=== PATIENT | male | born 1955 | race Caucasian/White ===

== ENCOUNTER → 2017-07-17 | Outpatient (CLI) | payer OTHER | END | disposition home or self-care (01) | LOC: LAB EV 11:12 | DX: L57.0 Actinic keratosis (principal) | CPT/HCPCS: 87070; 87205 ==

== ENCOUNTER → 2019-03-21 | Outpatient (CLI) | payer OTHER | END | disposition home or self-care (01) | LOC: PLD 08:21 → LAB SHORT 08:21 | DX: S90.851A Superficial foreign body, right foot, initial encounter (principal); L90.5 Scar conditions and fibrosis of skin | CPT/HCPCS: 88305 ==

== ENCOUNTER → 2020-03-10 | Outpatient (CLI) | payer OTHER ==
[2020-03-10 11:38] LABS: CHOL/HDL RATIO 2.4; Cholesterol 127 mg/dL (50-200); HDL Cholesterol 52 mg/dL (>39); LDL/HDL RATIO 1.2; Low Density Lipoprotein Chol 61 mg/dL (<110); Triglycerides 68 mg/dL (30-160); Very Low Density Lipoprot Chol 13 mg/dL (6-32)
[2020-03-10 14:02] LABS: PSA, %Free 27.7 %; PSA, Free 0.771 ng/mL
== END | disposition home or self-care (01) ==
LOC: LAB SHORT 11:15 → LAB EV 11:15
PROVIDERS: Physician Assistant
DX: Z12.5 Encounter for screening for malignant neoplasm of prostate (principal); I25.10 Atherosclerotic heart disease of native coronary artery without angina pectoris; E11.9 Type 2 diabetes mellitus without complications
CPT/HCPCS: 36415; 80061; 83036; 84153; 84154

== ENCOUNTER 2022-11-26 14:50 | Inpatient (IN) | payer OTHER ==
[~2022-11-26] VITALS: Ht 170.2 cm; Wt 79.3 kg
[2022-11-26 15:58] LABS: BASOPHILS ABSOLUTE AUTO 0.05 K/mm3 (0.00-0.23); BASOPHILS PERCENT AUTO 1 % (0-2); EOSINOPHILS ABSOLUTE AUTO 0.74 K/mm3 (0.00-0.68); EOSINOPHILS PERCENT AUTO 10 % (0-6); Hematocrit 39.6 % (37.0-53.0); Hemoglobin 13.5 g/dL (13.5-17.5); IMMATURE GRAN ABSOLUTE AUTO 0.02 K/mm3 (0.00-0.10); IMMATURE GRAN PERCENT AUTO 0 % (0-1); LYMPHOCYTES ABSOLUTE AUTO 1.82 K/mm3 (0.84-5.20); LYMPHOCYTES PERCENT AUTO 25 % (21-46); MONOCYTES ABSOLUTE AUTO 0.84 K/mm3 (0.16-1.47); MONOCYTES PERCENT AUTO 11 % (4-13); Mean Corpuscular HGB 31.6 pg (26.0-34.0); Mean Corpuscular HGB Conc 34.1 g/dL (31.5-36.5); Mean Corpuscular Volume 93 fL (80-100); Mean Platelet Volume 10.1 fL (9.1-12.4); NEUTROPHILS ABSOLUTE AUTO 3.94 K/mm3 (1.96-9.15); NEUTROPHILS PERCENT AUTO 53 % (41-73); Platelet Count 224 K/mm3 (150-400); RDW Coefficient Variation 12.2 % (11.7-14.2); RDW Standard Deviation 41.4 fL (35.1-46.3); Red Blood Cell Count 4.27 M/mm3 (4.30-5.90); White Blood Cell Count 7.41 K/mm3 (4.00-11.30)
[2022-11-26] MEDS ORDERED: ALBU2.5V5 INH (16:00)
[2022-11-26] MEDS ORDERED: ALOGLIPTIN25 M1 PO (16:00)
[2022-11-26] MEDS ORDERED: FLOVENT HFA12 GM INH (16:01)
[2022-11-26] MEDS ORDERED: ASPI81CH PO (16:01)
[2022-11-26] MEDS ORDERED: ATOR80 PO (16:01)
[2022-11-26] MEDS ORDERED: METF500C PO (16:01)
[2022-11-26] MEDS ORDERED: TOPROL XL50 M1 PO (16:02)
[2022-11-26] MEDS ORDERED: MONT10T PO (16:02)
[2022-11-26] MEDS ORDERED: NITR.4SL SL (16:02)
[2022-11-26 16:12] LABS: Albumin/Globulin Ratio 1.2 (0.8-1.8); Bilirubin, Total 0.7 mg/dL (0.1-1.0); Bun/Creatinine Ratio 15.8 (12.0-20.0); Calcium, Blood 8.8 mg/dL (8.5-10.1); Creatinine, Blood 0.76 mg/dL (0.60-1.20); Globulin, Blood 3.2 g/dL (2.2-4.0); Potassium, Blood 4.2 mmol/L (3.5-5.5); Total Protein, Blood 7.2 g/dL (6.4-8.2)
--- NOTE | 2022-11-26 21:24 | NUR ---
PT CHART REVIEWED FOR ADMIT
[2022-11-26 22:07] VITALS: BP 151/79
[2022-11-27 00:19] LABS: Anti-Xa UFH, PHA Monitoring <0.10 IU/mL; International Normalized Ratio 1.04; Prothrombin Time Results 10.9 Sec (9.7-11.5)
[2022-11-27 01:54] LABS: Hemoglobin 13.6 g/dL (13.5-17.5); Mean Corpuscular HGB 31.8 pg (26.0-34.0); Mean Corpuscular HGB Conc 34.9 g/dL (31.5-36.5); Mean Corpuscular Volume 91 fL (80-100); Mean Platelet Volume 10.2 fL (9.1-12.4); Platelet Count 222 K/mm3 (150-400); RDW Coefficient Variation 12.1 % (11.7-14.2); RDW Standard Deviation 40.3 fL (35.1-46.3); Red Blood Cell Count 4.28 M/mm3 (4.30-5.90)
[2022-11-27 02:11] LABS: Bun/Creatinine Ratio 14.1 (12.0-20.0); Creatinine, Blood 0.71 mg/dL (0.60-1.20); Potassium, Blood 3.9 mmol/L (3.5-5.5)
[2022-11-27 03:38] VITALS: BP 114/58
--- NOTE | 2022-11-27 04:55 | NUR ---
SHIFT SUMMARY 67 YR M ADMITTED ON 11/26/22 FOR UNSTABLE ANGINA. FULL CODE. NO ACUTE CHANGES THIS SHIFT. PT WAS STARTED ON A HEPARIN DRIP AND IS TOLERATING IT WELL. A SECOND IV WAS PLACED IN THE RIGHT FOREARM AND NS IS RUNNING AT 74 ML/HR. HE HAS HAD NO C/O CHEST PAIN THIS SHIFT BUT WAS CONCERNED ABOUT NITRO BEING AVAILABLE JUST IN CASE. HE IS CURRENTLY SLEEPING AND APPEARS TO BE COMFORTABLE. PT WAS EDUCATED ABOUT IGNITION DANGER AND FIRE SAFETY WHILE OXYGEN IS IN USE.
[2022-11-27 07:29] VITALS: BP 107/50
--- NOTE | 2022-11-27 09:37 | NUR ---
CALLED DR. CLINTON AT AROUND 0925, TO CLARIFY PATIENT SCHEDULED AM MEDS. PATIENT HAS BEEN NPO SINCE AL FOR PERDING CARDILOGY CONSULT AND BP 107/50 c HR OF [address] CLINTON TO GIVE SCHEDULED AM MEDS.
--- NOTE | 2022-11-27 16:36 | NUR ---
SHIFT SUMMARY: PATIENT A&OX4. CALM, PLEASANT AND COOPERATIVE c CARE. USES CALL LIGHT APPROPRIATELY AND ABLE TO NEEDS KNOWN. PATIENT DENIES CP/PRESSURE, SOB, N/V AND GENERALIZED PAIN. ON TELE, SB/SR IN HIGH 50'S TO LOW 60'S BPM. RA c SPO2 ABOVE 95% T/O SHIFT. PATIENT IS CONTINENT OF BOWELS AND BLADDER, AMBULATES TO BATHROOM INDEPENDENTLY T/O SHIFT. NPO AT ND FOR POSSIBLE CARDIAC CATHETERIZATION IN AM 11/28/22. RECEIVED SCHEDULED MEDS PER EMAR. PIV TO RAC INFUSING NS AT 75 MLS/HR, PIV TO L FOREARM INFUSING HEPARIN AT 14 U/KG/HR-22.1 MLS/HR RATE CONTROLLED BY PHARMACY. VITAL SIGNS REVIEWED. CALL LIGHT IN REACH. PATIENT EDUCATED ON NON SMOKING POLICY, RISK OF INJURY AND IGNITION SOURCES WHEN O2 IN USE. PATIENT DENIES SMOKING AND VERBALIZED UNDERSTANDING.
[2022-11-27 16:45] VITALS: BP 122/54
[2022-11-27 19:15] VITALS: BP 157/77
[2022-11-27 20:30] VITALS: BP 113/62
[2022-11-28] VITALS (11 sets, daily range): BP systolic 102–158; BP diastolic 40–97
--- NOTE | 2022-11-28 05:41 | NUR ---
SHIFT SUMMARY NO ACUTE CHANGES. HAS RESTED QUIETLY WITH EYES CLOSED, RESP EVEN & UNLABORED. NO COMPLAINTS OF CP. TELE SHOWS SR. HAS BEEN NPO SINCE NV FOR ANTICIPATED HEART CATH IN THE MORNING. NS & HEPARIN INFUSING PER MD ORDER. IS PLEASANT & COOPERATIVE WITH ALL CARE. BED IN LOW POSITION, CALL LIGHT WITHIN REACH.
[2022-11-28 06:12] LABS: BASOPHILS ABSOLUTE AUTO 0.04 K/mm3 (0.00-0.23); BASOPHILS PERCENT AUTO 1 % (0-2); EOSINOPHILS ABSOLUTE AUTO 0.53 K/mm3 (0.00-0.68); EOSINOPHILS PERCENT AUTO 9 % (0-6); Hematocrit 37.2 % (37.0-53.0); Hemoglobin 12.8 g/dL (13.5-17.5); IMMATURE GRAN ABSOLUTE AUTO 0.01 K/mm3 (0.00-0.10); IMMATURE GRAN PERCENT AUTO 0 % (0-1); LYMPHOCYTES ABSOLUTE AUTO 1.56 K/mm3 (0.84-5.20); LYMPHOCYTES PERCENT AUTO 26 % (21-46); MONOCYTES ABSOLUTE AUTO 0.59 K/mm3 (0.16-1.47); MONOCYTES PERCENT AUTO 10 % (4-13); Mean Corpuscular HGB 31.7 pg (26.0-34.0); Mean Corpuscular HGB Conc 34.4 g/dL (31.5-36.5); Mean Corpuscular Volume 92 fL (80-100); Mean Platelet Volume 10.2 fL (9.1-12.4); NEUTROPHILS PERCENT AUTO 55 % (41-73); Platelet Count 178 K/mm3 (150-400); RDW Coefficient Variation 12.1 % (11.7-14.2); RDW Standard Deviation 41.1 fL (35.1-46.3); Red Blood Cell Count 4.04 M/mm3 (4.30-5.90); White Blood Cell Count 6.03 K/mm3 (4.00-11.30)
[2022-11-28 06:38] LABS: Bun/Creatinine Ratio 13.3 (12.0-20.0); Calcium, Blood 8.5 mg/dL (8.5-10.1); Creatinine, Blood 0.75 mg/dL (0.60-1.20); Potassium, Blood 4.1 mmol/L (3.5-5.5)
--- NOTE | 2022-11-28 08:48 | NUR ---
PATIENT A&OX4. DENIES CP/PRESSURE, SOB, DIZZINESS AND GENERALIZED PAIN. ON TELE, SR HR IN THE HIGH 70'S BPM. NPO SINCE MN. RECEIVED SCHEDULED MEDS PER EMAR. VITAL SIGNS REVIEWED. HEPARIN WAS STOP AT 0842 AND PASSENGER TIRE BUILDER WAS NOTIFIED. PATIENT LEFT THE ROOM AT 0848 TO LEATHER FINISHER.
--- NOTE | 2022-11-28 09:57 | NUR ---
NOTE: PATIENT TRANSFERRED TO PCU RM 13. REPORTS GIVEN TO PETRA HAWLEY AT AROUND 0904. ALL PATIENT PERSONAL BELONGINGS WERE SENT WITH THE PATIENT.
--- NOTE | 2022-11-28 10:12 | NUR ---
pt update PT ARRIVED TO PCU FROM PRESS MANAGER APPROX 0945. PT AMBULATED FROM WHEELCHAIR TO PCU BED INDEPENDENTLY. VSS. PT A&OX4. SINUS GAB, HR 50'S. POST ANGIO, R RADIAL SITE. TR BAND W/ 11 MLS. SITE SOFT, NO BRUISING NO BLEEDING NOTED. ARM BOARD IN PLACE. PT EDUCATED ON R RADIAL POST PROCEDURE INSTRUCTIONS. PT EDUCATED ON IGNITION SOURCES AND FIRE PREVENTION. PT ORIENTED TO ROOM, CALL LIGHT. REPORT RECEIVED FROM MEDICAL RN. BELONGINGS RETREIVED FROM MEDICAL FLOOR. PT'S SISTER CALLED FOR UPDATE, TRANSFERRED INTO ROOM TO SPEAK W/ PT. CALL LIGHT IN REACH.
--- NOTE | 2022-11-28 12:08 | NUR ---
tr band update 2 hrs post tr band placement. 2 mls removed from band. no bleeding noted. arm board in place.
--- NOTE | 2022-11-28 18:10 | NUR ---
SHIFT SUMMARY PT A&OX4, SEE PREVIOUS NOTE. TR BAND DEFLATED, REMOVED APPROX 1600. CALL PLACED TO MD SHANNON TO CONFIRM HEPARIN RESTART. HEPARIN RESTARTED AT 1700, SEE EMAR. PT UP TO SHOWER THIS AFTERNOON. NS INFUSED X1 BAG PER EMAR. PT SITTING ON SIDE OF BED, EATING DINNER. CALL LIGHT IN REACH.
--- NOTE | 2022-11-28 22:17 | NUR ---
ASSUMED PT CARE FROM VIKY LAMBERT ON . A&OX4. DENIES ANY CHEST PAIN/PRESSURE. HR SR 70'S. BP STABLE, SEE RECORDED VITALS. DENIES SOB. RESPIRATIONS EVEN AND UNLABORED. O2 SATS 96% ON RA. RIGHT RADIAL SIGNS C/D/I, NO BRUISING OR INTERATION NOTED. TEGADERM COVERING AND ARM BOARD IN PLACE. PT IS KNOWLEDGEABLE ABOUT USE OF ARM AT THIS TIME. DENIES NEEDS. CALL LIGHT IN REACH. BED IN LOW POSITION.
--- NOTE | 2022-11-29 00:12 | NUR ---
UNABLE TO OPEN VITAL SIGNS RECORD IN [employer] DUE TO MEDITECH CRASHING AND HAVING TO BE RESTARTED. VITAL SIGNS RECORD LOCKED BY THIS RN, UNABLE TO UNLOCK. VITAL SIGNS RECORDED HERE. TEMPORAL TEMPERATURE IS 97.3, RESPIRATIONS 16, EVEN AND UNLABORED, HR 63 SR, BP 149/72 WITH MAP OF 94. O2 SATS 95% ON RA. DENIES NEEDS AT THIS TIME. CALL LIGHT IN REACH. BED IN LOW POSITION.
[2022-11-29 04:17] VITALS: BP 137/76
--- NOTE | 2022-11-29 04:22 | NUR ---
SHIFT SUMMARY: NO ACUTE CHANGES NOTED DURING THIS SHIFT. PT HAS DENIED HAVING ANY EPISODES OF CHEST PAIN. VITAL SIGNS REMAIN STABLE. VOIDING CLEAR, YELLOW URINE IN HIS URINAL WITHOUT DIFFICULTY. HEPRIN GTT INFUSING ORDERED, SEE EMAR. CALL LIGHT IN REACH. BED IN LOW POSITION.
[2022-11-29 06:21] LABS: BASOPHILS ABSOLUTE AUTO 0.04 K/mm3 (0.00-0.23); BASOPHILS PERCENT AUTO 1 % (0-2); EOSINOPHILS ABSOLUTE AUTO 0.68 K/mm3 (0.00-0.68); EOSINOPHILS PERCENT AUTO 10 % (0-6); Hematocrit 36.8 % (37.0-53.0); Hemoglobin 12.8 g/dL (13.5-17.5); IMMATURE GRAN ABSOLUTE AUTO 0.01 K/mm3 (0.00-0.10); IMMATURE GRAN PERCENT AUTO 0 % (0-1); LYMPHOCYTES ABSOLUTE AUTO 1.81 K/mm3 (0.84-5.20); LYMPHOCYTES PERCENT AUTO 27 % (21-46); MONOCYTES ABSOLUTE AUTO 0.62 K/mm3 (0.16-1.47); MONOCYTES PERCENT AUTO 9 % (4-13); Mean Corpuscular HGB 31.8 pg (26.0-34.0); Mean Corpuscular HGB Conc 34.8 g/dL (31.5-36.5); Mean Corpuscular Volume 92 fL (80-100); Mean Platelet Volume 9.9 fL (9.1-12.4); NEUTROPHILS ABSOLUTE AUTO 3.49 K/mm3 (1.96-9.15); NEUTROPHILS PERCENT AUTO 53 % (41-73); Platelet Count 184 K/mm3 (150-400); RDW Coefficient Variation 12.1 % (11.7-14.2); RDW Standard Deviation 40.7 fL (35.1-46.3); Red Blood Cell Count 4.02 M/mm3 (4.30-5.90); White Blood Cell Count 6.65 K/mm3 (4.00-11.30)
[2022-11-29 06:35] LABS: Bun/Creatinine Ratio 9.5 (12.0-20.0); Calcium, Blood 8.7 mg/dL (8.5-10.1); Creatinine, Blood 0.84 mg/dL (0.60-1.20); Potassium, Blood 3.8 mmol/L (3.5-5.5)
[2022-11-29 08:16] VITALS: BP 140/72
[2022-11-29 11:38] VITALS: BP 150/100
[2022-11-29 15:55] VITALS: BP 165/96
[2022-11-29 20:04] VITALS: BP 144/79
--- NOTE | 2022-11-29 22:37 | NUR ---
ASSUMED PT CARE FROM VIKY LAMBERT ON . A&OX4. DENIES ANY CHEST PAIN/PRESSURE, HR SR IN THE 80'S. DENIES FEELING SOB, RESPIRATIONS EVEN AND UNLABOED. O2 SATS > 92% ON RA. BP STABLE, SEE RECORDED VITALS. AFEBRILE. HEPRIN GTT INFUSING PER ORDERS, SEE EMAR. SHOWERED FOR PT COMFORT. DENIES NEEDS. RIGHT RADIAL SITE C/D/I, NO BLEEDING, INDERATION OR SWELLING NOTED. CALL LIGHT IN REACH. BED IN LOW POSITION.
[2022-11-30 00:44] VITALS: BP 145/82
[2022-11-30 03:35] VITALS: BP 151/93
[2022-11-30 03:52] LABS: BASOPHILS ABSOLUTE AUTO 0.05 K/mm3 (0.00-0.23); BASOPHILS PERCENT AUTO 1 % (0-2); EOSINOPHILS ABSOLUTE AUTO 0.66 K/mm3 (0.00-0.68); EOSINOPHILS PERCENT AUTO 11 % (0-6); Hematocrit 37.3 % (37.0-53.0); Hemoglobin 13.2 g/dL (13.5-17.5); IMMATURE GRAN ABSOLUTE AUTO 0.01 K/mm3 (0.00-0.10); IMMATURE GRAN PERCENT AUTO 0 % (0-1); LYMPHOCYTES PERCENT AUTO 32 % (21-46); MONOCYTES ABSOLUTE AUTO 0.54 K/mm3 (0.16-1.47); MONOCYTES PERCENT AUTO 9 % (4-13); Mean Corpuscular HGB Conc 35.4 g/dL (31.5-36.5); Mean Corpuscular Volume 91 fL (80-100); NEUTROPHILS ABSOLUTE AUTO 3.03 K/mm3 (1.96-9.15); NEUTROPHILS PERCENT AUTO 48 % (41-73); Platelet Count 176 K/mm3 (150-400); RDW Standard Deviation 39.5 fL (35.1-46.3); Red Blood Cell Count 4.12 M/mm3 (4.30-5.90); White Blood Cell Count 6.29 K/mm3 (4.00-11.30)
[2022-11-30 04:11] LABS: Bun/Creatinine Ratio 12.4 (12.0-20.0); Calcium, Blood 9.1 mg/dL (8.5-10.1); Creatinine, Blood 0.8 mg/dL (0.60-1.20); Potassium, Blood 3.7 mmol/L (3.5-5.5)
--- NOTE | 2022-11-30 04:18 | NUR ---
SHIFT SUMMARY: NO COMPLAINTS OF CHEST PAIN/PRESSURE DURING THIS SHIFT. MEDICATED FOR CONGESTION WITH GOOD RESULTS. PT REPORTS CONGESTION AT NIGHT OCCURS REGULARLY FOR HIM AT HOME. VITAL SIGNS STABLE. HEPRIN GTT INFUSION CONTINUES. VOIDING LARGE AMOUNTS OF CLEAR, YELLOW URINE WITHOUT DIFFICULTY. CALL LIGHT IN REACH. BED IN LOW POSITION.
[2022-11-30 08:37] VITALS: BP 150/93
[2022-11-30 12:32] VITALS: BP 146/80
[2022-11-30 17:27] VITALS: BP 148/86
[2022-11-30 19:26] VITALS: BP 143/69
--- NOTE | 2022-11-30 19:44 | NUR ---
ASSUMED PT CARE FROM VIKY LAMBERT ON . A&OX4. DENIES CHEST PAIN/PRESSURE. HR SR IN 60'S. BP STABLE, SEE RECORDED VITAL SIGNS. HEPRIN GTT INFUSING ORDERED. DENIES SOB. O2 SATS > 92% ON RA. DENIES NAUSEA AT THIS TIME. PT INFORMED AT DR. SCHMITT INSTRUCTIONS OVER THE PHONE THAT ONE LAST ATTEMPT IS BEING MADE TO SEND PT TO [facility], IF THIS DOES NOT OCCUR DR. GAY WILL LOOK INTO SENDING THE PT TO ANOTHER HOSPITAL. PT SITTIGN UP IN BED WATCHING TV. DENIES NEEDS AT THIS TIME. CALL LIGHT IN REACH.
[2022-12-01 00:10] VITALS: BP 127/72
[2022-12-01 04:06] VITALS: BP 124/74
--- NOTE | 2022-12-01 05:12 | NUR ---
SHIFT SUMMARY: NO ACUTE CHANGES NOTED DURING THIS SHIFT. CONTINUES TO DENY CHEST PAIN/PRESSURE/SOB. HR SR/SB 50-60'S. HEPRIN GTT INFUSING ORDERED. VOIDING LARGE AMOUNTS OF CLEAR, YELLOW URINE. INDEPENDENT IN ROOM. RESTING COMFORTABLY WITH EYES CLOSED. CALL LIGHT IN REACH.
[2022-12-01 07:36] VITALS: BP 124/74
[2022-12-01 07:59] VITALS: BP 136/70
--- NOTE | 2022-12-01 08:44 | NUR ---
REPORT TO GRADY LAMBERT AT [facility]. PT LEFT WITH HEPARIN 13U/KG/HE INFUSING AND ALL BELONGINGS
== END 2022-12-01 08:32 | disposition home or self-care (01) | DRG 287 ==
LOC: ER 14:50 → PCU 21:12 → MEDS 21:12 → PCU 11-28 09:36
PROVIDERS: Internal Medicine; Nurse Practitioner Acute Care; Physician Assistant; ADMIT Internal Medicine
PROC: 4A023N7 Measurement of Cardiac Sampling and Pressure, Left Heart, Percutaneous Approach (ICD-10-PCS; principal; 2022-11-28)
PROC: B2151ZZ Fluoroscopy of Left Heart using Low Osmolar Contrast (ICD-10-PCS; 2022-11-28)
PROC: B2111ZZ Fluoroscopy of Multiple Coronary Arteries using Low Osmolar Contrast (ICD-10-PCS; 2022-11-28)
DX: I25.110 Atherosclerotic heart disease of native coronary artery with unstable angina pectoris (principal); I24.9 Acute ischemic heart disease, unspecified; I10 Essential (primary) hypertension; E11.9 Type 2 diabetes mellitus without complications; J45.909 Unspecified asthma, uncomplicated; E78.5 Hyperlipidemia, unspecified; E66.9 Obesity, unspecified; Z95.5 Presence of coronary angioplasty implant and graft; Z87.891 Personal history of nicotine dependence; Z88.2 Allergy status to sulfonamides; Z79.82 Long term (current) use of aspirin; Z79.899 Other long term (current) drug therapy; Z79.84 Long term (current) use of oral hypoglycemic drugs; Z89.022 Acquired absence of left finger(s); Z68.27 Body mass index [BMI] 27.0-27.9, adult
CPT/HCPCS: 36415; 71046; 76937; 80048; 80053; 82947; 83690; 84484; 85025; 85027; 85520; 85610; 85730; 93005; 93010; 93306; 93458; 94640; 94664; 94760; 99152; 99153; 99285-25; A9270; C1769; C1887; C1894; J1644; J2250; J3010; J7030; J7050; Q9967

== ENCOUNTER 2024-02-17 20:38 | Observation (INO) | payer OTHER ==
[~2024-02-17] VITALS: Ht 167.6 cm; Wt 70.3 kg
[~2024-02-17 20:38] MED LIST: ALBU2.5V5 INH; ALOGLIPTIN25 M1 PO; ASPI81CH PO; ATOR80 PO; FLOVENT HFA12 GM INH; METF500C PO; MONT10T PO; NITR.4SL SL; TOPROL XL50 M1 PO
[2024-02-17 20:58] LABS: BASOPHILS ABSOLUTE AUTO 0.05 K/mm3 (0.00-0.23); BASOPHILS PERCENT AUTO 1 % (0-2); EOSINOPHILS ABSOLUTE AUTO 0.66 K/mm3 (0.00-0.68); EOSINOPHILS PERCENT AUTO 7 % (0-6); Hematocrit 38.7 % (37.0-53.0); IMMATURE GRAN ABSOLUTE AUTO 0.02 K/mm3 (0.00-0.10); IMMATURE GRAN PERCENT AUTO 0 % (0-1); LYMPHOCYTES ABSOLUTE AUTO 3.23 K/mm3 (0.84-5.20); LYMPHOCYTES PERCENT AUTO 35 % (21-46); MONOCYTES ABSOLUTE AUTO 0.86 K/mm3 (0.16-1.47); MONOCYTES PERCENT AUTO 9 % (4-13); Mean Corpuscular HGB 31.6 pg (26.0-34.0); Mean Corpuscular HGB Conc 33.6 g/dL (31.5-36.5); Mean Corpuscular Volume 94 fL (80-100); Mean Platelet Volume 10.8 fL (9.1-12.4); NEUTROPHILS ABSOLUTE AUTO 4.32 K/mm3 (1.96-9.15); NEUTROPHILS PERCENT AUTO 47 % (41-73); Platelet Count 205 K/mm3 (150-400); RDW Coefficient Variation 12.6 % (11.7-14.2); RDW Standard Deviation 43.4 fL (35.1-46.3); Red Blood Cell Count 4.11 M/mm3 (4.30-5.90); White Blood Cell Count 9.14 K/mm3 (4.00-11.30)
[2024-02-17 21:19] LABS: Albumin, Blood 4.1 g/dL (3.4-5.0); Albumin/Globulin Ratio 1.3 (0.8-1.8); Bilirubin, Total 1.2 mg/dL (0.1-1.0); Bun/Creatinine Ratio 19.7 (12.0-20.0); Calcium, Blood 9.7 mg/dL (8.5-10.1); Creatinine, Blood 0.76 mg/dL (0.60-1.20); Globulin, Blood 3.1 g/dL (2.2-4.0); Potassium, Blood 3.6 mmol/L (3.5-5.5); Total Protein, Blood 7.2 g/dL (6.4-8.2)
[2024-02-18] MEDS ORDERED: Nitroglycerin 0.4 MG SUBL SL PRN (00:15)
[2024-02-18] MEDS ORDERED: Ondansetron HCl 2 MG / ML 2ML Vial IV PRN (00:15)
[2024-02-18] MEDS ORDERED: FLU VACC TS2024-25(6MOS UP)/PF 45 MCG/0.5 ML SYRINGE IM ONE (00:15)
[2024-02-18] MEDS ORDERED: METOPROLOL TART25 MG PO (00:20)
[2024-02-18] MEDS ORDERED: METF500 PO (00:21)
[2024-02-18] MEDS ORDERED: ALBU90OI INH (00:22)
[2024-02-18] MEDS ORDERED: Lactated Ringer's 1,000 ML IV SCH (01:00)
[2024-02-18 06:17] LABS: BASOPHILS ABSOLUTE AUTO 0.03 K/mm3 (0.00-0.23); BASOPHILS PERCENT AUTO 1 % (0-2); EOSINOPHILS ABSOLUTE AUTO 0.34 K/mm3 (0.00-0.68); EOSINOPHILS PERCENT AUTO 6 % (0-6); Hematocrit 34.3 % (37.0-53.0); Hemoglobin 11.8 g/dL (13.5-17.5); IMMATURE GRAN ABSOLUTE AUTO 0.02 K/mm3 (0.00-0.10); IMMATURE GRAN PERCENT AUTO 0 % (0-1); LYMPHOCYTES ABSOLUTE AUTO 1.67 K/mm3 (0.84-5.20); LYMPHOCYTES PERCENT AUTO 30 % (21-46); MONOCYTES ABSOLUTE AUTO 0.57 K/mm3 (0.16-1.47); MONOCYTES PERCENT AUTO 10 % (4-13); Mean Corpuscular HGB 31.8 pg (26.0-34.0); Mean Corpuscular HGB Conc 34.4 g/dL (31.5-36.5); Mean Corpuscular Volume 93 fL (80-100); Mean Platelet Volume 11.2 fL (9.1-12.4); NEUTROPHILS ABSOLUTE AUTO 3.01 K/mm3 (1.96-9.15); NEUTROPHILS PERCENT AUTO 53 % (41-73); Platelet Count 173 K/mm3 (150-400); RDW Coefficient Variation 12.7 % (11.7-14.2); RDW Standard Deviation 42.9 fL (35.1-46.3); Red Blood Cell Count 3.71 M/mm3 (4.30-5.90); White Blood Cell Count 5.64 K/mm3 (4.00-11.30)
[2024-02-18 06:42] LABS: Albumin, Blood 3.7 g/dL (3.4-5.0); Albumin/Globulin Ratio 1.5 (0.8-1.8); Bilirubin, Total 0.8 mg/dL (0.1-1.0); Bun/Creatinine Ratio 20.9 (12.0-20.0); Calcium, Blood 9.1 mg/dL (8.5-10.1); Creatinine, Blood 0.77 mg/dL (0.60-1.20); Globulin, Blood 2.5 g/dL (2.2-4.0); Potassium, Blood 3.7 mmol/L (3.5-5.5); Total Protein, Blood 6.2 g/dL (6.4-8.2)
[2024-02-18 06:53] LABS: Cholesterol 94 mg/dL (50-200); HDL Cholesterol 47 mg/dL (>39); LDL/HDL RATIO 0.7; Low Density Lipoprotein Chol 32 mg/dL (0-110); Triglycerides 77 mg/dL (30-160); Very Low Density Lipoprot Chol 15 mg/dL (6-32)
[2024-02-18] MEDS ORDERED: Metoprolol Succinate 25 MG TABCR PO SCH (09:00)
[2024-02-18] MEDS ORDERED: Atorvastatin 40 MG Tab PO SCH (09:00)
[2024-02-18] MEDS ORDERED: Enoxaparin 40 MG/0.4 ML SYR SC SCH (09:00)
[2024-02-18] MEDS ORDERED: Aspirin 81 MG Chew PO SCH (09:00)
[2024-02-18 13:31] VITALS: BP 124/97
[2024-02-18] MEDS ORDERED: Aminophylline 250MG / 10ML 10 ML Vial ONE (13:31)
[2024-02-18] MEDS ORDERED: Regadenoson 0.4 MG/5 ML SYRINGE ONE (13:32)
--- NOTE | 2024-02-18 17:46 | NUR ---
SHIFT NOTE: PT ARRIVED TO UNIT FROM ER AT APPROX 1315. HE IS A/OX4 AND ABLE TO MAKE HIS NEEDS KNOWN. HE IS IND IN ROOM WITH ADLS. HE DENIES CHEST PAIN/PRESSURE SINCE ARRIVAL ON UNIT. HE IS TOLERATING FOOD/DRINK SINCE STRESSED TEST. HE IN ON TELE IN NSR WITH NO ACUTE EVENTS. WILL CONITNUE TO MONITOR AND REPORT TO ONCOMING RN
[2024-02-18] MEDS ORDERED: Mometasone Furoate Inhaler 220 mcg 14 ACT INH SCH (19:45)
[2024-02-18 20:06] VITALS: BP 127/72
[2024-02-18] MEDS ORDERED: Montelukast Sodium 10 MG Tab PO SCH (21:00)
[2024-02-19 05:28] LABS: BASOPHILS ABSOLUTE AUTO 0.03 K/mm3 (0.00-0.23); BASOPHILS PERCENT AUTO 0 % (0-2); EOSINOPHILS ABSOLUTE AUTO 0.48 K/mm3 (0.00-0.68); EOSINOPHILS PERCENT AUTO 7 % (0-6); Hemoglobin 12.1 g/dL (13.5-17.5); IMMATURE GRAN ABSOLUTE AUTO 0.02 K/mm3 (0.00-0.10); IMMATURE GRAN PERCENT AUTO 0 % (0-1); LYMPHOCYTES ABSOLUTE AUTO 1.72 K/mm3 (0.84-5.20); LYMPHOCYTES PERCENT AUTO 25 % (21-46); MONOCYTES ABSOLUTE AUTO 0.65 K/mm3 (0.16-1.47); MONOCYTES PERCENT AUTO 10 % (4-13); Mean Corpuscular HGB 31.5 pg (26.0-34.0); Mean Corpuscular HGB Conc 33.6 g/dL (31.5-36.5); Mean Corpuscular Volume 94 fL (80-100); NEUTROPHILS ABSOLUTE AUTO 3.92 K/mm3 (1.96-9.15); NEUTROPHILS PERCENT AUTO 58 % (41-73); Platelet Count 174 K/mm3 (150-400); RDW Coefficient Variation 13.1 % (11.7-14.2); RDW Standard Deviation 44.4 fL (35.1-46.3); Red Blood Cell Count 3.84 M/mm3 (4.30-5.90); White Blood Cell Count 6.82 K/mm3 (4.00-11.30)
[2024-02-19 05:40] VITALS: BP 131/77
[2024-02-19 05:56] LABS: Bun/Creatinine Ratio 15.7 (12.0-20.0); Calcium, Blood 9.2 mg/dL (8.5-10.1); Creatinine, Blood 0.76 mg/dL (0.60-1.20); Potassium, Blood 3.7 mmol/L (3.5-5.5)
--- NOTE | 2024-02-19 06:10 | NUR ---
SHIFT SUMMARY: Pt is admitted for chest pain and is a DNR. is alert and able to make needs known. ADLs have been independent. Denies pain or discomfort when asked. Telly reports sinus in the 60s. Cardio consult called in about [address] Cm. Spoke with August with the answering service and was informed that it will be added to the MDs list.
[2024-02-19 07:01] VITALS: BP 124/69
[2024-02-19] MEDS ORDERED: Albuterol 2.5 MG/3 ML VIAL INH PRN (08:20)
[2024-02-19] MEDS ORDERED: METO25ER PO (09:43)
[2024-02-19] MEDS ORDERED: Amlodipine Bes2.5 MG PO (09:44)
--- NOTE | 2024-02-19 14:39 | NUR ---
PT AWAKE DURING SHIFT REPORT, WATCHING TV. PLEASANT AND CO-OP WITH CARE. DR SHANNON HERE EARLY TO SEE PT AND DISCUSS PLAN OF CARE FROM CARDIOLOGY. PER DR SHANNON, PT EXERCISING TOO MUCH CAUSING CP. NEW ORDERS PLACED. PT CLEARED TO GO HOME. DR ELAINE HERE SOON AFTER CARDIOLOGY. D/C ORDERS PLACED. MEDS FAXED PER PT REQUEST. D/C INSTRUCTIONS REVIEWED WITH PT; VERBALIZED UNDERSTANDING. IV SITE D/C'D WNL'S. PT ABLE TO DRESS HIMSELF AND GATHER ALL BELONGINGS. PT REQUESTING TO WALK OUT ON HIS OWN, TO WAIT FOR RIDE FROM SISTER.
== END 2024-02-19 10:40 | disposition home or self-care (01) ==
LOC: ER 20:38 → ERHOLD 20:39 → MEDS 20:39
PROVIDERS: Family Medicine; Student in an Organized Health Care Education/Training Program; ADMIT Student in an Organized Health Care Education/Training Program
DX: R07.89 Other chest pain (principal); I25.10 Atherosclerotic heart disease of native coronary artery without angina pectoris; I10 Essential (primary) hypertension; E11.9 Type 2 diabetes mellitus without complications; J45.909 Unspecified asthma, uncomplicated; Z87.891 Personal history of nicotine dependence; Z79.84 Long term (current) use of oral hypoglycemic drugs; Z79.899 Other long term (current) drug therapy; Z88.2 Allergy status to sulfonamides; Z66 Do not resuscitate; Z95.5 Presence of coronary angioplasty implant and graft
CPT/HCPCS: 36415; 71046; 78452; 80048; 80053; 80061; 82947; 83690; 83735; 84484; 85025; 93005; 93010; 93017; 94762; 96372; 99285-25; A9270; A9500; G0378; J0280; J1650; J2785; J7120

== ENCOUNTER 2024-04-05 08:15 | Day surgery (SDC) | payer OTHER ==
[~2024-04-05] VITALS: Ht 167.6 cm; Wt 74.8 kg
[2024-04-05] VITALS (16 sets, daily range): BP systolic 94–140; BP diastolic 60–112
[~2024-04-05 08:15] MED LIST changes: +ALBU90OI INH; +Amlodipine Bes2.5 MG PO; +METF500 PO; +METO25ER PO; +METOPROLOL TART25 MG PO; +NS 500 ML IV SCH
[2024-04-05] MEDS ORDERED: propofoL 20 ML IV ONE (08:41)
--- NOTE | 2024-04-05 08:47 | NUR ---
History, Chart, Medications and Allergies reviewed before start of procedure. Lungs clear T/O to Auscultation. Patient confirms NPO status and agrees with scheduled surgery. Pre-Op teaching done. Pt verbalizes understanding. Patient states colon prep results clear.
--- NOTE | 2024-04-05 08:47 | NUR ---
04/05/24 0847 Alphonso Salmon CONFIRMED AND REVIEWED H&P, MEDCICATIONS, ALLERGIES, MEDICAL HISTORY, RESPIRATORY HISTORY, VITAL SIGNS, 3-LEAD EKG, CONSENTS, AND PHYSICIAN ORDERS. PATIENT CONFIRMS NPO STATUS AND AGREES WITH SCHEDULED PROCEDURE. MONITOR INTACT WITH CONTINUOUS PULSE OXIMETRY, CAPNOGRAPHY, 3-LEAD EKG, INTERMITTENT BP. SUPPLEMENTAL O2 TO BE TITRATED THROUGHOUT PROCEDURE TO MAINTAIN O2 SATURATION ABOVE 90%. PATIENT DETERMINED TO BE ASA APPROPRIATE FOR PROPOFOL SEDATION PRIOR TO START OF PROCEDURE BY DR. AMEZCUA
--- NOTE | 2024-04-05 09:52 | NUR ---
Patient up to Ambulate independently. Gait steady. Discharge instructions reviewed with patient. Patient verbalizes understanding. Copy given to patient to take home. Patient States Post-Procedure ride home has been arranged. Discharged via wheelchair to private car for ride home. PT TOLERATING PO, REPORTS READY TO GO HOME. DR AMEZCUA BEEN TO SEE PT EARLIER REPORTED MAY SKIP F/U, RECC NEXT SCOPE IN 10 YEARS.
== END 2024-04-05 09:52 | disposition home or self-care (01) ==
LOC: ORSCMMR 08:15 → ORD 09:30 → ORSCMMR 09:30
PROVIDERS: Internal Medicine Gastroenterology
PROC: 0DJD8ZZ Inspection of Lower Intestinal Tract, Via Natural or Artificial Opening Endoscopic (ICD-10-PCS; principal; 2024-04-05 09:30)
DX: Z12.11 Encounter for screening for malignant neoplasm of colon (principal); K64.8 Other hemorrhoids; E11.9 Type 2 diabetes mellitus without complications; I10 Essential (primary) hypertension; J45.909 Unspecified asthma, uncomplicated; I25.10 Atherosclerotic heart disease of native coronary artery without angina pectoris; Z79.82 Long term (current) use of aspirin; Z79.84 Long term (current) use of oral hypoglycemic drugs; Z79.899 Other long term (current) drug therapy
CPT/HCPCS: 82947; J2704; J7040

== ENCOUNTER → 2024-11-10 | Outpatient (CLI) | payer OTHER ==
[~2024-11-10] MED LIST changes: -NS 500 ML IV SCH
== END ==
LOC: LAB SHORT 11:50 → LAB 11:50
DX: R30.0 Dysuria (principal)
CPT/HCPCS: 87086